=== PATIENT | female | born 1940 | race Caucasian/White ===

== ENCOUNTER 2017-07-18 11:08 | Emergency (ER) | payer MEDICARE, OTHER ==
--- NOTE | 2017-07-18 11:48 | EDM.PDOC ---
ED HPI GENERAL MEDICAL PROBLEM - General Chief Complaint: Respiratory Problem Stated Complaint: RESPIRATORY ISSUES Time Seen by Provider: 07/18/17 11:23 Source of Information: Reports: Patient History Limitations: Reports: No Limitations - History of Present Illness INITIAL COMMENTS - FREE TEXT/NARRATIVE: 76-year-old female presents for evaluation and treatment of cough and shortness of breath. Patient reports she has been experiencing symptoms for the last 3 weeks. Reports that she had a pneumonia shot 3 weeks and her symptoms have steadily worsened. Reports a dry, nonproductive cough. She is unsure if she's been having any fevers. No nausea, vomiting, diarrhea, abdominal pain or chills. She reports some "fullness" to her ears but no pain. Reports that her throat feels dry but does not have a sore throat. Patient is from [facility]. She arrived in [place] on Thursday to visit her family. She reports that she was in [place] in May. She felt rundown and had cold symptoms during the [place] trip. She did have an influenza vaccine. I stated she also had a pneumonia vaccine 3 weeks ago. Duration: Week(s): (3) - Related Data Allergies Allergy/AdvReac Type Severity Reaction Status Date / Time paper tape. Allergy Itching Uncoded 07/18/17 11:19 Home Meds: Home Meds Acyclovir 400 mg PO DAILY 07/18/17 [History] Ascorbic Acid [Vitamin C] 1,000 mg PO DAILY 07/18/17 [History] Aspirin [Valarie Chewable] 325 mg PO DAILY 07/18/17 [History] Ca Carbonate/Vitamin D3/Vit K [Calcium + D Soft Chewable Tab] 600 mg PO BID [History] Celecoxib [CeleBREX] 50 mg PO DAILY 07/18/17 [History] Cetirizine [ZyrTEC] 10 mg PO DAILY 07/18/17 [History] Cinnamon Bark [Cinnamon] 1,000 mg PO DAILY 07/18/17 [History] Cranberry 4,200 mg PO BID 07/18/17 [History] DULoxetine [Cymbalta] 60 mg PO DAILY 07/18/17 [History] Docusate Sodium [Stool Softener] 100 mg PO BID 07/18/17 [History] Esomeprazole [NexIUM] 20 mg PO DAILY 07/18/17 [History] Ezetimibe [Zetia] 10 mg PO DAILY 07/18/17 [History] Fish Oil/DHA/EPA [Fish Oil 1,200 MG] 2,400 mg PO BID 07/18/17 [History] Folic Acid 400 mg PO DAILY 07/18/17 [History] Furosemide [Lasix] 20 mg PO DAILY #30 tab 07/18/17 [Rx] L.acidoph,Paracasei, B.lactis [Probiotic] 1 each PO BID 07/18/17 [History] Losartan [Cozaar] 50 mg PO DAILY 07/18/17 [History] Montelukast [Singulair] 10 mg PO DAILY 07/18/17 [History] Multivitamin [Multiple Vitamins] 1 each PO DAILY 07/18/17 [History] Pyridoxine HCl [Vitamin B-6] 100 mg PO DAILY 07/18/17 [History] Ubidecarenone [Co Q-10] 200 mg PO DAILY 07/18/17 [History] buPROPion HBr [Aplenzin] 348 mg PO DAILY 07/18/17 [History] Past Medical History HEENT History: Reports: Impaired Vision Other HEENT History: wears glasses Cardiovascular History: Reports: Hypertension Genitourinary History: Reports: Other (See Below) Other Genitourinary History: hx UTIs Psychiatric History: Reports: Depression Endocrine/Metabolic History: Reports: Hypothyroidism Oncologic (Cancer) History: Reports: Colon - Past Surgical History HEENT Surgical History: Reports: Other (See Below) GI Surgical History: Reports: Appendectomy, Cholecystectomy, Other (See Below) Other GI Surgeries/Procedures: lymph nodes removed Female Surgical History: Reports: Hysterectomy Musculoskeletal Surgical History: Reports: Hip Replacement, Knee Replacement Social & Family History - Family History Family Medical History: Noncontributory - Tobacco Use Smoking Status *Q: Former Smoker Used Tobacco, but Quit: Yes Month Tobacco Last Used: Jun 1997 - Caffeine Use Caffeine Use: Reports: Coffee Other Caffeine Use: 1-2 cups of coffee in the morning - Recreational Drug Use Recreational Drug Use: No ED ROS GENERAL - Review of Systems Review Of Systems: See Below Constitutional: Reports: Weight Gain HEENT: Denies: Ear Pain (ear fullness), Throat Pain (reports throat is dry) Respiratory: Reports: Shortness of Breath, Cough. Denies: Sputum Cardiovascular: Reports: Dyspnea on Exertion, Edema. Denies: Chest Pain GI/Abdominal: Denies: Abdominal Pain, Diarrhea, Nausea, Vomiting ED EXAM, GENERAL - Physical Exam Exam: See Below Exam Limited By: No Limitations General Appearance: Alert, WD/WN, No Apparent Distress, Obese Ears: Normal External Exam, Normal Canal, Hearing Grossly Normal (uses hearing aids), Normal TMs Nose: Normal Inspection Throat/Mouth: Normal Inspection, Normal Lips, Normal Oropharynx, Normal Voice, No Airway Compromise Neck: Normal Inspection Respiratory/Chest: No Respiratory Distress, Lungs Clear, Normal Breath Sounds Cardiovascular: Normal Peripheral Pulses, Regular Rate, Rhythm, No Murmur, Other (2+ pitting edema bilaterally) GI/Abdominal: Soft, Non-Tender Neurological: Alert, Oriented, Normal Cognition Psychiatric: Normal Affect, Normal Mood Skin Exam: Warm, Dry, Normal Color EKG INTERPRETATION EKG Date: 07/18/17 Time: 12:50 Rhythm: NSR Rate (Beats/Min): 67 [place]: Normal P-Wave: Present QRS: Normal ST-T: Normal QT: Prolonged EKG Interpretation Comments: NSR at 67 bpm. Prolonged Qt with a QTc of 530. T wave inversion in AVL, V1-V6 Course - Vital Signs Last Recorded V/S: Last Vital Signs Temp 36.2 C 07/18/17 11:19 Pulse 68 07/18/17 11:19 Resp 18 07/18/17 11:19 BP 179/90 H 07/18/17 11:19 Pulse Ox 97 07/18/17 11:19 - Orders/Labs/Meds Orders: Active Orders 24 hr Category Date Time Status EKG 12 Lead [EKG Documentation Completion] [RC] STAT Care 07/18/17 12:41 Active Chest 2V [CR] Stat Exams 07/18/17 11:42 Taken Labs: Laboratory Tests 07/18/17 07/18/17 07/18/17 Range/Units 12:00 12:00 12:00 WBC 5.49 (3.98-10.04) K/mm3 RBC 4.09 (3.98-5.22) M/mm3 Hgb 12.9 (11.2-15.7) gm/L Hct 38.8 (34.1-44.9) % MCV 94.9 H (79.4-94.8) fl MCH 31.5 (25.6-32.2) pg MCHC 33.2 (32.2-35.5) g/dl RDW Std Deviation 43.2 (36.4-46.3) fL Plt Count 208 (182-369) K/mm3 MPV 9.7 (9.4-12.3) fl Neutrophils % (Manual) 60 (40-60) % Band Neutrophils % 0 (0-10) % Lymphocytes % (Manual) 38 (20-40) % Atypical Lymphs % 0 % Monocytes % (Manual) 2 (2-10) % Eosinophils % (Manual) 0 L (0.7-5.8) % Basophils % (Manual) 0 L (0.1-1.2) Platelet Estimate Adequate RBC Morph Comment Normal Sodium 145 (136-145) mEq/L Potassium 3.5 (3.5-5.1) mEq/L Chloride 109 H (98-107) mEq/L Carbon Dioxide 24 (21-32) mEq/L Anion Gap 15.5 H (5-15) BUN 12 (7-18) mg/dL Creatinine 0.8 (0.55-1.02) mg/dL Est Cr Clr Drug Dosing 51.03 mL/min Estimated GFR (MDRD) > 60 (>60) mL/min BUN/Creatinine Ratio 15.0 (14-18) Glucose 125 H (83-115) mg/dL Calcium 8.4 L (8.5-10.1) mg/dL Troponin I < 0.017 (0.00-0.056) ng/mL C-Reactive Protein 1.1 H* (<1.0) mg/dL NT-Pro-B Natriuret Pep 635 H (0-125) pg/mL - Radiology Interpretation Free Text/Narrative:: Chest: 2 views of the chest were obtained. Comparison: No previous study. Heart size is mildly enlarged. Tortuous thoracic aorta is seen. Lungs are clear. Bony structures appear within normal limits for the patient's age. Impression: 1. Incidental findings. Nothing acute is seen. - Re-Assessments/Exams Free Text/Narrative Re-Assessment/Exam: 07/18/17 12:42 Influenza returned negative. I reviewed the imaging and lab results with the patient. She extends me that she has more dyspnea on exertion. She reports she is only coughing at night. She is able to lie flat without having trouble with shortness of breath. She states that she does see a social media director yearly and had a stress test about 2 or 3 years ago which was okay. She is has no cardiac history. We will get an EKG. She states that she has an abnormality on her EKG. She states she is aware that something is always abnormal EKG but she does not know exactly what this is. 07/18/17 13:15 Reviewed trop, EKG and BNP with the patient. Likely experiencing early heart failure. Will start lasix 20mg daily. Educated her she will likely need and echocardiogram to confirm diagnosis and evaluate severity. Will discharge home today. Discharge instructions as documented. Departure - Departure Time of Disposition: 13:22 Disposition: Home, Self-Care 01 Condition: Fair Clinical Impression: Heart failure - Discharge Information Prescriptions: Furosemide [Lasix] 20 mg PO DAILY #30 tab Instructions: Heart Failure, [id number] Referrals: PCP,Not In Area [Primary Care Provider] - Forms: ED Department Discharge Additional Instructions: start the lasix today. Take 1 tablet daily. This medication will make you urinate more. I recommend you take this normally in the morning. Also recommend while you are adjusting to the new medication take your time getting up from a seated or laying position. renetta medication may make you slightly lightheaded. Follow-up with your social media director or family medicine provider as soon as you are able to. Recommend lowering your salt intake. Please return to the ER if your symptoms change or worsen. - My Orders Last 24 Hours: My Active Orders 07/18/17 11:42 Chest 2V [CR] Stat 07/18/17 12:41 EKG 12 Lead [EKG Documentation Completion] [RC] STAT - Assessment/Plan Last 24 Hours: My Active Orders 07/18/17 11:42 Chest 2V [CR] Stat 07/18/17 12:41 EKG 12 Lead [EKG Documentation Completion] [RC] STAT
--- NOTE | 2017-07-18 16:00 | CR ---
Chest: Two views of the chest were obtained. Comparison: No previous study. Heart size is mildly enlarged. Tortuous thoracic aorta is seen. Lungs are clear. Bony structures appear within normal limits for the patient's age. Impression: 1. Incidental findings. Nothing acute is seen. Diagnostic code #2
== END 2017-07-18 13:35 | disposition home or self-care (01) ==
LOC: JD.ED 11:08
DX: I11.0 Hypertensive heart disease with heart failure (principal); I50.9 Heart failure, unspecified; F32.9 Major depressive disorder, single episode, unspecified; E03.9 Hypothyroidism, unspecified; Z87.891 Personal history of nicotine dependence; Z79.899 Other long term (current) drug therapy; Z79.82 Long term (current) use of aspirin; Z91.048 Other nonmedicinal substance allergy status
CPT/HCPCS: 36415; 71046; 71046-26; 80048; 83880; 84484; 85025; 86140; 87804; 93005; 93010; 99283-25; 99285-25